=== PATIENT | male | born 1955 | race Caucasian/White ===

== ENCOUNTER → 2023-11-16 10:57 | Outpatient (BNVA) | payer OTHER, SELFPAY | PROVIDERS: PCP Family Medicine; Visit Provider Podiatrist Foot & Ankle Surgery | DX: M79.672 Pain in left foot (principal); R60.9 Edema, unspecified; M72.2 Plantar fascial fibromatosis | CPT/HCPCS: 73630 ==

== ENCOUNTER 2025-11-16 07:14 | Emergency (ER) | payer MEDICARE, SELFPAY ==
[2025-11-16 07:19] VITALS: BP 174/71; PULSE 68; RESP 16; TEMP 36.9; O2SAT 93; BMI 34.2
--- NOTE | 2025-11-16 07:22 | XR_ITS ---
WS: [id number] Acute abdomen series, 11/16/2025 Clinical Data: constipation Comparison: None. Findings: In the chest there are no nodules, masses or effusions. The heart is normal. The pulmonary vascularity is not increased. The aortic arch shows mild tortuosity. No free air is seen beneath the diaphragms. No abnormal intra-abdominal masses or calcifications are seen. There are scattered air-fluid levels throughout the abdomen. There is minimal fecal material in the colon but there is a fecal impaction. There are right upper quadrant cholecystectomy clips. XR/XR acute abdomen series 75999 Impression: 1. Atherosclerosis. 2. Fecal impaction.
--- OUTSIDE RECORDS SUMMARY | 2025-11-16 07:23 | XMS_ITS | Patient Health Record ---
Author Organization [facility] Address [address] [facility] [address] [place] [address] Support Name Relationship Address Phone Unavailable Emergency Contact [address] [place] [id number] JAELYN TIRADO Guarantor Unknown [phone] Reason For Referral No Information Plan Of Treatment No Information
--- OUTSIDE RECORDS SUMMARY | 2025-11-16 07:23 | XMS_ITS | Data Portability ---
Author Organization [facility]EN [facility] Alyssia Waldron, [facility] Address [address] [facility] [address] [place] [address] Care Team Providers Care Appellate Law Clerk Name Role Phone ELENITA GUPTA Primary Care Provider Assessment No assessment recorded. Plan of Treatment Reminders Order Date Submit Date Provider Last Modified By Organization Details Last Modified Time Details Appointments None recorded. Lab hemoglobi n A1C/hemog lobin total, QN, blood 2024 025 PHILOMENA [facility], [address], [place], [address], 5 09:35:17 PSA, serum or plasma 2024 025 [facility], [address] [place], [address], 5 05:10:26 CMP, serum or plasma 2024 025 [facility], [address], [address], [place], [address], 5 09:50:41 lipid panel, blood 2024 025 [facility], [address], [address], [place], [address], 5 09:50:44 CBC 2024 025 [facility], [address], [address], [place], [address], 5 09:51:53 SARS CoV 2 RNA, QL, nasophary nx 2023 dcrase [facility] [address] [facility], [place], [address], 4 18:49:44 PSA, serum or plasma 2023 024 [facility], [address] [place] [address], [address] [place], [address], 07:00:22 CMP, serum or plasma 2023 024 [facility], [address], [place], [address], 4 11:12:31 lipid panel, blood 2023 024 Replaced by [facility], [address], [address], [place], [address], 4 11:13:46 CBC 2023 024 Replaced by [facility], [address], [address], [place], [address], 4 11:49:41 Referral None recorded. Procedures None recorded. Surgeries None recorded. Imaging None recorded. Medication Orders Paxlovid 300 mg (150 mg x 2)-100 mg tablets in a dose pack 2023 024 [facility], [address], [place], [address], 4 13:22:23 sildenafi l 100 mg tablet 2023 024 [facility], [address], [place], [address], 4 16:12:46 rosuvasta tin 10 mg tablet 2023 024 [email or web address] [facility], [address], [place], [address], 4 15:56:29 fluticaso ne propionat e 50 mcg/actua tion nasal spray,veronica pension 2023 024 [facility], [address], [place], [address], 5 10:29:00 Patient TargetsNo targets recorded. Patient InstructionsNo instructions recorded. Reason for Referral None Reported. Results Created Date Observation Date Name Description Value Unit Range Abnormal Flag Note LastModifiedBy Organization Detail LastModifiedTime 05/08/2005/08/2024 CMP (MALE ) glucose 104.0 mg/dL 60.0-9 9.0 high Not Available [facility] [address] [facility] [address], [place], [address], 05/08/2024 11:12:30 05/08/20 24 05/08/2024 CMP (MALE ) BUN (blood urea nitrogen) 11.0 mg/dL 10.0-2 6.0 Not Available [facility] [address] [facility] [address], [place], [address], 05/08/2024 11:12:30 05/08/20 24 05/08/2024 CMP (MALE ) creatinine (serum) 0.8 mg/dL 0.4-1. 5 Not Available [facility] [address] [facility] [address], [place], [address], 05/08/2024 11:12:30 05/08/20 24 05/08/2024 CMP (MALE ) BUN/creatini ne ratio 14.10 ratio Not Available [facility] [address] [facility], [place], [address], 05/08/2024 11:12:30 05/08/20 24 05/08/2024 CMP (MALE ) eGFR calculated 105.8 Not Available [facility] [address] [facility], [place], [address], 05/08/2024 11:12:30 05/08/20 24 05/08/2024 CMP (MALE ) total protein 6.5 g/dL 6.0-8. 5 Not Available [facility] [address] [facility] [address], [place], [address], 05/08/2024 11:12:30 05/08/20 24 05/08/2024 CMP (MALE ) total bilirubin 0.7 mg/dL 0.2-1. 3 Not Available [facility] [address] [facility] [address], [place], [address], 05/08/2024 11:12:30 05/08/20 24 05/08/2024 CMP (MALE ) albumin 4.0 g/dL 3.5-5. 5 Not Available [facility] [address] [facility] [address], [place], [address], 05/08/2024 11:12:30 05/08/20 24 05/08/2024 CMP (MALE ) globulin 2.5 calc Not Available [facility] [address] [facility] [address], [place], [address], 05/08/2024 11:12:30 05/08/20 24 05/08/2024 CMP (MALE ) AST (SGOT) 27.0 U/L 0.0-46 .0 Not Available [facility] [address] [facility], [place], [address], 05/08/2024 11:12:30 05/08/20 24 05/08/2024 CMP (MALE ) altv (SGPT) 26.0 U/L 13.0-6 9.0 normal Not Available [facility] [address] [facility], [place], [address], 05/08/2024 11:12:30 05/08/20 24 05/08/2024 CMP (MALE ) A/G ratio 1.6 ratio Not Available [facility] [address] [facility] [address], [place], [address], 05/08/2024 11:12:30 05/08/20 24 05/08/2024 CMP (MALE ) ALP phos 70.0 U/L 30.0-1 40.0 normal Not Available [facility] [address] [facility] [address], [place], [address], 05/08/2024 11:12:30 05/08/20 24 05/08/2024 CMP (MALE ) calcium 8.9 mg/dL 8.4-10 .5 Not Available [facility] [address] [facility] [address], [place], [address], 05/08/2024 11:12:30 05/08/20 24 05/08/2024 CMP (MALE ) sodium 139.0 mmol/ L 136.0- 145.0 Not Available [facility] [address] [facility] [address], [place], [address], 05/08/2024 11:12:30 05/08/20 24 05/08/2024 CMP (MALE ) potassium 4.5 mmol/ L 3.5-5. 1 Not Available [facility] [address] [facility] [address], [place], [address], 05/08/2024 11:12:30 05/08/20 24 05/08/2024 CMP (MALE ) chloride 108.0 mmol/ L 98.0-1 10.0 normal Not Available [facility] [address] [facility] [address] [facility] 1, [place], [address], 05/08/2024 11:12:30 05/08/20 24 05/08/2024 CMP (MALE ) C02 30.0 mmol/ L 22.0-3 1.0 Not Available [facility] [address] [facility] 1, [place], [address], 05/08/2024 11:12:30 05/08/20 24 05/08/2024 CMP (MALE ) anion gap 1.0 calc Not Available [facility] [address] [facility] [address], [place], [address], 05/08/2024 11:12:30 05/08/20 24 05/08/2024 CMP (MALE ) osmolality 286.9 calc Not Available [facility] [address] [facility], [place], [address], 05/08/2024 11:12:30 05/08/20 24 05/08/2024 LIPID PROFI LE (MALE ) cholesterol 139.0 mg/dL 0.0-20 0.0 Not Available [facility] [address] [facility], [place], [address], 05/08/2024 11:13:45 05/08/20 24 05/08/2024 LIPID PROFI LE (MALE ) trig 154.0 mg/dL 0.0-15 0.0 high Not Available [facility] [address] [facility] 1, [place], [address], 05/08/2024 11:13:45 05/08/20 24 05/08/2024 LIPID PROFI LE (MALE ) HDL - direct 35.0 mg/dL >40.0 low Not Available [facility] [address] [facility], [place], [address], 05/08/2024 11:13:45 05/08/20 24 05/08/2024 LIPID PROFI LE (MALE ) VLDL - direct 30.8 mg/dL Not Available [facility] [address] [facility] 1, [place], [address], 05/08/2024 11:13:45 05/08/20 24 05/08/2024 LIPID PROFI LE (MALE ) LDL - direct 73.2 mg/dL 0.0-13 0.0 Not Available [facility] [address] [facility] 1, [place], [address], 05/08/2024 11:13:45 05/08/20 24 05/08/2024 CBC WBC 8.0 x10 4.5-10 .5 Not Available [facility] [address] [facility] [address] [facility] 1, [place], [address], 05/08/2024 11:49:41 05/08/20 24 05/08/2024 CBC RBC 5.08 x10 4.30-5 .90 Not Available [facility] [address] [facility] [address] [facility] 1, [place], [address], 05/08/2024 11:49:41 05/08/20 24 05/08/2024 CBC HGB 13.9 g/dL 13.5-1 8.0 Not Available [facility] [address] [facility] 1, [place], [address], 05/08/2024 11:49:41 05/08/20 24 05/08/2024 CBC HCT 42.8 % 35.0-6 0.0 Not Available [facility] [address] [facility] 1, [place], [address], 05/08/2024 11:49:41 05/08/20 24 05/08/2024 CBC MCV 84.3 fL 80.0-9 9.9 Not Available [facility] [address] [facility] 1, [place], [address], 05/08/2024 11:49:41 05/08/20 24 05/08/2024 CBC MCH 27.3 pg 27.0-3 2.0 Not Available [facility] [address] [facility] 1, [place], [address], 05/08/2024 11:49:41 05/08/20 24 05/08/2024 CBC MCHC 32.4 g/dL 32.0-3 6.0 Not Available [facility] [address] [facility] 1, [place], [address], 05/08/2024 11:49:41 05/08/20 24 05/08/2024 CBC RDW 14.7 % 11.5-1 4.5 high Not Available [facility] [address] [facility], [place], [address], 05/08/2024 11:49:41 05/08/20 24 05/08/2024 CBC plt 257.0 x10 150.0- 451.0 Not Available [facility] [address] [facility] 1, [place], [address], 05/08/2024 11:49:41 05/08/20 24 05/08/2024 CBC lymphocytes % 23.9 % 20.0-5 0.0 Not Available [facility] [address] [facility] 1, [place], [address], 05/08/2024 11:49:41 05/08/20 24 05/08/2024 CBC granulcytes % 67.5 % 30.0-7 0.0 Not Available [facility] [address] [facility] 1, [place], [address], 05/08/2024 11:49:41 05/08/20 24 05/08/2024 CBC monocytes % 6.7 % 2.0-16 .0 Not Available [facility] [address] [facility] [address], [place], [address], 05/08/2024 11:49:41 05/08/20 24 05/08/2024 CBC granulcytes# 5.4 x10 Not Sonia ilable [facility] [address] [facility] [address], [place], [address], 05/08/2024 11:49:41 05/08/20 24 05/08/2024 CBC lymphocytes # 1.9 x10 Not Available [facility] [address] [facility] [address], [place], [address], 05/08/2024 11:49:41 05/08/20 24 05/08/2024 CBC monocytes # 0.5 x10 Not Avai lable [facility] [address] [facility] [address], [place], [address], 05/08/2024 11:49:41 05/08/20 24 05/09/2024 PSA, TOTAL PSA, total 1.00 NG/mL < or = 4.00 normal The total PSA value from this assay syste m is stand ardiz ed again st the WHO stand betsy. The test resul t will be appro ximat domenic 20% lower when skyler red to the equim olar- stand ardiz ed total PSA (Villalobos man Coult er). Skyler rison of seria l PSA resul ts shoul d be inter prete d with this fact in mind. This test was perfo rmed using the CytoLogice ns chemi lumin escen t metho d. Value s obtai archie from diffe rent assay metho ds canno t be used inter hill ealauray . PSA level s, regar dless of value , shoul d not be inter prete d as absol big sandy evide nce of the prese nce or absen ce of disea se. Not Available [facility] [address], [place], [address], 05/09/2024 07:00:22 08/03/20 24 08/03/2024 SARS CoV 2 RNA, QL, nasop haryn x COVID positi ve Not Available [facility] [address] [place], [address], 08/03/2024 16:06:01 05/21/20 25 05/21/2025 HBA1C hemaglobin A1C 5.6 4.2-6. 5 Not Available [address], [place], [address], 05/21/2025 09:35:17 05/21/20 25 05/21/2025 CMP (MALE ) glucose 103.0 mg/dL 60.0-9 9.0 high Not Available [address] [address], [place], [address], 05/21/2025 09:50:41 05/21/20 25 05/21/2025 CMP (MALE ) BUN (blood urea nitrogen) 11.0 mg/dL 10.0-2 6.0 Not Available [address] [address], [place], [address], 05/21/2025 09:50:41 05/21/20 25 05/21/2025 CMP (MALE ) creatinine (serum) 0.8 mg/dL 0.4-1. 5 Not Available [address], [address], 05/21/2025 09:50:41 05/21/20 25 05/21/2025 CMP (MALE ) BUN/creatini ne ratio 13.75 ratio Not Available [address] [address], [place], [address], 05/21/2025 09:50:41 05/21/20 25 05/21/2025 CMP (MALE ) eGFR calculated 102.5 Not Available [address] [place] [facility] 1, [place], [address], 05/21/2025 09:50:41 05/21/20 25 05/21/2025 CMP (MALE ) total protein 6.3 g/dL 6.0-8. 5 Not Available [facility] [address] [facility], [place], [address], 05/21/2025 09:50:41 05/21/20 25 05/21/2025 CMP (MALE ) total bilirubin 0.5 mg/dL 0.2-1. 3 Not Available [facility] [address] [facility], [place], [address], 05/21/2025 09:50:41 05/21/20 25 05/21/2025 CMP (MALE ) albumin 3.9 g/dL 3.5-5. 5 Not Available [facility] [address] [facility], [place], [address], 05/21/2025 09:50:41 05/21/20 25 05/21/2025 CMP (MALE ) globulin 2.4 calc Not Available [facility] [address] [facility] [address], [place], [address], 05/21/2025 09:50:41 05/21/20 25 05/21/2025 CMP (MALE ) AST (SGOT) 20.0 U/L 0.0-46 .0 Not Available [facility] [address] [facility], [place], [address], 05/21/2025 09:50:41 05/21/20 25 05/21/2025 CMP (MALE ) altv (SGPT) 22.0 U/L 13.0-6 9.0 normal Not Available [facility] [address] [facility] 1, [place], [address], 05/21/2025 09:50:41 05/21/20 25 05/21/2025 CMP (MALE ) A/G ratio 1.6 ratio Not Available [facility] [address] [facility] [address], [place], [address], 05/21/2025 09:50:41 05/21/20 25 05/21/2025 CMP (MALE ) ALP phos 62.0 U/L 30.0-1 40.0 normal Not Available [facility] [address] [facility] [address], [place], [address], 05/21/2025 09:50:41 05/21/2005/21/2025 CMP (MALE ) calcium 8.9 mg/dL 8.4-10 .5 Not Available [facility] [address] [facility] [address], [place], [address], 05/21/2025 09:50:41 05/21/20 25 05/21/2025 CMP (MALE ) sodium 138.0 mmol/ L 136.0- 145.0 Not Available [facility] [address] [address], [place], [address], 05/21/2025 09:50:41 05/21/20 25 05/21/2025 CMP (MALE ) potassium 4.2 mmol/ L 3.5-5. 1 Not Available [facility] [address] [facility] [address], [place], [address], 05/21/2025 09:50:41 05/21/20 25 05/21/2025 CMP (MALE ) chloride 106.0 mmol/ L 98.0-1 10.0 normal Not Available [facility] [address] [facility] [address], [place], [address], 05/21/2025 09:50:41 05/21/20 25 05/21/2025 CMP (MALE ) C02 26.0 mmol/ L 22.0-3 1.0 Not Available [facility] [address] [facility] Dur[facility]ne [facility] 1, [place], [address], 05/21/2025 09:50:41 05/21/20 25 05/21/2025 CMP (MALE ) anion gap 6.0 calc Not Available [facility] [address] [facility], [place], [address], 05/21/2025 09:50:41 05/21/20 25 05/21/2025 CMP (MALE ) osmolality 284.8 calc Not Available [facility] [address] [facility], [place], [address], 05/21/2025 09:50:41 05/21/20 25 05/21/2025 LIPID PROFI LE (MALE ) cholesterol 136.0 mg/dL 0.0-20 0.0 Not Available [facility] [address] [facility], [place], [address], 05/21/2025 09:50:44 05/21/20 25 05/21/2025 LIPID PROFI LE (MALE ) trig 122.0 mg/dL 0.0-15 0.0 Not Available [facility] [address] [facility], [place], [address], 05/21/2025 09:50:44 05/21/20 25 05/21/2025 LIPID PROFI LE (MALE ) HDL - direct 33.0 mg/dL >40.0 low Not Available [facility] [address] [facility], [place], [address], 05/21/2025 09:50:44 05/21/20 25 05/21/2025 LIPID PROFI LE (MALE ) VLDL - direct 24.4 mg/dL Not Available [facility] [address] [facility] [address], [place], [address], 05/21/2025 09:50:44 05/21/20 25 05/21/2025 LIPID PROFI SATNI (MALE ) LDL - direct 78.6 mg/dL 0.0-13 0.0 Not Available [facility] [address] [facility] 1, [place], [address], 05/21/2025 09:50:44 05/21/20 25 05/21/2025 CBC WBC 7.1 x10 4.5-10 .5 Not Available [facility] [address], [place], [address], 05/21/2025 09:51:52 05/21/2005/21/2025 CBC RBC 4.96 x10 4.30-5 .90 Not Available [facility] [address] [facility] 1, [place], [address], 05/21/2025 09:51:52 05/21/20 25 05/21/2025 CBC HGB 13.6 g/dL 13.5-1 8.0 Not Available [facility] [address] [facility] 1, [place], [address], 05/21/2025 09:51:52 05/21/2005/21/2025 CBC HCT 43.1 % 35.0-6 0.0 Not Available [facility] [address] [facility] 1, [place], [address], 05/21/2025 09:51:52 05/21/20 25 05/21/2025 CBC MCV 86.8 fL 80.0-9 9.9 Not Available [facility] [address] [facility] 1, [place], [address], 05/21/2025 09:51:52 05/21/20 25 05/21/2025 CBC MCH 27.4 pg 27.0-3 2.0 Not Available [facility] [address] [facility] 1, [place], [address], 05/21/2025 09:51:52 05/21/2005/21/2025 CBC MCHC 31.5 g/dL 32.0-3 6.0 low Not Available [facility] [address] [facility] 1, [place], [address], 05/21/2025 09:51:52 05/21/20 25 05/21/2025 CBC RDW 14.4 % 11.5-1 4.5 Not Available [facility] [address] [facility] 1, [place], [address], 05/21/2025 09:51:52 05/21/2005/21/2025 CBC plt 243.9 x10 150.0- 451.0 Not Available [facility] [address] [facility], [place], [address], 05/21/2025 09:51:52 05/21/20 25 05/21/2025 CBC lymphocytes % 30.9 % 20.0-5 0.0 Not Available [facility] [address] [facility] 1, [place], [address], 05/21/2025 09:51:52 05/21/2005/21/2025 CBC granulcytes % 57.9 % 30.0-7 0.0 Not Available [facility] [address] [facility] 1, [place], [address], 05/21/2025 09:51:52 05/21/2005/21/2025 CBC monocytes % 8.6 % 2.0-16 .0 Not Available [facility] [address] [facility] 1, [place], [address], 05/21/2025 09:51:52 05/21/20 25 05/21/2025 CBC granulcytes# 4.1 x10 Not Sonia ilable [facility] [address], [place], [address], 05/21/2025 09:51:52 05/21/20 25 05/21/2025 CBC lymphocytes # 2.2 x10 Not Available [facility] [address], [place], [address], 05/21/2025 09:51:52 05/21/20 25 05/21/2025 CBC monocytes # 0.6 x10 Not Avai lable [facility] [address], [place], [address], 05/21/2025 09:51:52 05/21/20 25 05/22/2025 PSA, TOTAL PSA, total 1.46 NG/mL < or = 4.00 normal The total PSA value from this assay syste m is stand ardiz ed again st the WHO stand betsy. The test resul t will be appro ximat domenic 20% lower when skyler red to the equim olar- stand ardiz ed total PSA (Villalobos man Coult er). Skyler rison of seria l PSA resul ts shoul d be inter prete d with this fact in mind. This test was perfo rmed using the Sieme ns chemi lumin escen t metho d. Value s obtai archie from diffe rent assay metho ds canno t be used inter hill jose m . PSA level s, regar dless of value , shoul d not be inter prete d as absol big sandy evide nce of the prese nce or absen ce of disea se. Not Available [facility] [id number] , [place], [address], 05/22/2025 05:10:26 Result Notes None recorded. Problems Name Problem SNOMED Code Status Onset Date Resolution Date Notes Provider Name and Address Organization Details Recorded Time Posterior rhinorrhea 71611374 Active 2022 Korey Bowman MD [address] [place], [address], [facility] 3 17:02:28 Lower urinary tract symptoms due to benign prostatic hypertrophy 5744397121121 1 Active 2022 Elenita Gupta MD [address] [place] [address], [phone], [facility] 3 08:46:28 Pain of left heel 7396947701642 109 Active 2022 Elenita Gupta MD [address] [place] [address], [phone], [facility] 3 08:46:33 Morbid obesity 260510709 Active 2023 Palmira shcmidt [facility] 4 15:34:30 Hyperlipide savana 37649422 Active 2023 GLADYS schmidt [facility] 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 5 11:05:14 Problem Notes None recorded. Procedures Surgical History Date Name Laterality Status Provider Name and Address Organization Details Recorded Time 05/08/20 24 Psa screening completed ASPEN SANTILLAN [facility] 10/19/2024 14:53:16 10/28/20 23 Colonoscopy completed GLADYS MCKEON [facility] 11/03/2023 15:40:48 laparoscopic cholecystectomy completed Elenita Gupta MD [address] [place] [address], [phone], [facility] 05/15/2025 11:12:21 Imaging Results None recorded. Procedure Notes None recorded. Medical Equipment None Reported. Allergies No known drug allergies Medications Name Sig Start Date Stop Date Status Note LastModified by Organization Details LastModified Time doxycycline hyclate 100 mg capsule Take 1 capsule twice a day by oral route for 10 days. 10/14 completed Not Available Not Available Not Available prednisone 20 mg tablet TAKE 1 TABLET BY MOUTH ONCE DAILY 03/08 completed Not Available Not Available Not Available sildenafil 100 mg tablet TAKE ONE-HALF TABLET BY MOUTH 30 TO 60 MINUTES PRIOR TO SEXUAL ACTIVITY. MAX 1 TABLET/24 HOURS. active Not Available Not Available No t Available tamsulosin 0.4 mg capsule 02/07 completed Not Available Not Available Not Available benzonatate 100 mg capsule Take 1 capsule 3 times a day by oral route as needed for 10 days. 10/14 completed Not Available Not Available Not Available hydroxyzine HCl 25 mg tablet TAKE 1 TABLET BY MOUTH ONCE DAILY AT BEDTIME NEEDED 03/29 completed Not Available Not Available Not Available mupirocin 2 % topical ointment APPLY TWICE DAILY TO AFFECTED AREA ON BACK UNTIL HEALED 10/14 completed Not Available Not Available Not Available clobetasol 0.05 % topical ointment APPLY OINTMENT TOPICALLY TO AFFECTED AREA TWICE DAILY FOR 2 WEEKS; THEN TAKE A 1 WEEK BREAK; REPEAT NEEDED 03/29 completed Not Available Not Available Not Available fluticasone propionate 50 mcg/actuati on nasal spray,suspe nsion USE 2 SPRAY(S) IN EACH NOSTRIL ONCE DAILY active Not Available Not Available No t Available amoxicillin 875 mg-potassiu m clavulanate 125 mg tablet TAKE 1 TABLET BY MOUTH EVERY 12 HOURS FOR 10 DAYS 04/10 completed Not Available Not Available Not Available dutasteride 0.5 mg capsule 02/07 completed Not Available Not Available Not Available rosuvastati n 10 mg tablet TAKE 1 TABLET BY MOUTH ONCE DAILY AT BEDTIME active Not Available Not Available No t Available melatonin 1 hs active Not Available Not Sonia ilable Not Available Mucinex active Not Available Not Avail able Not Available Paxlovid 300 mg (150 mg x 2)-100 mg tablets in a dose pack TAKE 3 TABLETS TOGETHER (TWO 150 MG NIRMATREL VIR TABLETS AND ONE 100 MG RITONAVIR TABLET) BY MOUTH TWICE DAILY FOR 5 DAYS. 10/23 completed Not Available Not Available Not Available Vitals Date Recorded Body height Body mass index (BMI) Body weight Body temperature Oxygen saturation Heart rate Systolic And Diastolic Provider Name and Address Organization Details Last Updated DateTime 4 182.88 cm 35.9 kg/m2 050204. 98 g 97.4 [degF] 96 % 61 /min 130/70 mm[Hg] [facility] 4 15:32:28 Date Recorded Body height Body mass index (BMI) Body weight Body temperature Heart rate Oxygen saturation Systolic And Diastolic Provider Name and Address Organization Details Last Updated DateTime 5 182.88 cm 35.4 kg/m2 859152. 61 g 97.5 [degF] 53 /min 94 % 138/58 mm[Hg] [facility] 5 10:34:10 Date Recorded Body height Body mass index (BMI) Body weight Oxygen saturation Heart rate Respiratory rate Body temperature Systolic And Diastolic Provider Name and Address Organization Details Last Updated DateTime 4 182.88 cm 35.3 kg/m2 846951. 72 g 97 % 55 /min 20 /min 97.9 [degF] 120/80 mm[Hg] ASPEN SANTILLAN [facility] 4 12:07:58 Social History Question Answer Notes LastModified by [employer] Details LastModified Time Tobacco Smoking Status Never [facility] 08/03[facility]2024 16:09:42 What Was The Date Of Your Most Recent Tobacco Screening? 05/15/2025 Information not available 05/15/2025 Sex: Unknown Functional Status Question Answer Note LastModified by [employer] Details LastModified Time How many times per week do you consume alcohol? 1-2 times per week Information not available 05/15/2025 Do you use any illicit or recreational drugs? No [email or web address] Information not available 08/03/2024 Do you or have you ever used any other forms of tobacco or nicotine? No Information not available 05/15/2025 What is your level of alcohol consumption? Occasional [email or web address] Information not available 08/03/2024 Do you or have you ever used any nicotine-free cigarettes, vape, or chewing tobacco? No Information not available 05/15/2025 Mental Status None recorded. Family History Nothing Reported. Medical History No medical history recorded. Immunizations Vaccine Type Date Status Note Provider Nam e and Address Organization Details Recorded Time zoster recombinant 3 completed Not Available [facility] 07/05/2023 08:15:28 Tdap 3 completed Not Available [facility] 07/05/2023 08:15:28 zoster recombinant 3 completed [facility] 10/14/2023 08:37:20 Influenza, adjuvanted, quadrivalent, PF 3 completed JIGNESH GUPTA PA-C [address] [place] [address], [phone], [facility] 11/04/2023 16:47:13 Pneumococcal conjugate PCV20, polysaccharide [id number] conjugate, adjuvant, PF 3 completed JIGNESH GUPTA PA-C [address] [place], [address], [facility] 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 needs screening skin exam and ongoing anctinic tx Visual disturbance 31534 001 H53.9 he reports spots in his visual garcia. works with high heat and bright light. [id number] Elenita Gupta MD [facility] ([facility]) [address] [place] [phone] 03/29/2023 14:14:06 03/29/2023 19:59:43 Hyperglycemia 82710486 R73.9 Lower urin rick tract symptoms 564868089 R39.9 Hyperlipidemia 18163020 E78.5 [id number] ANTONIA CORREA-Joseph [facility] ([facility]) [address] [place] [id number] 06/30/2023 09:24:08 06/30/2023 11:03:46 Acute upper respiratory infection 66175365 J06.9 Start doxycyclin e BID today. Can take benzonatat e PRN for cough. Encouraged patient to push fluids and use cool mist humidifier at night. Can take tylenol/ib uprofen as needed for pain and fever. Encouraged patient to return for further evaluation if no improvemen t in 3-5 days. If severe SOB or chest pain occurs, go to ED. Patient verbalized understand ing. [id number] Korey Bowman MD [facility] ([facility]) [address] [place] [phone] 09/02/2023 16:36:34 09/12/2023 17:26:09 Posterior rhinorrhea 30560938 R09.82 Patient has signs and symptoms suggestive of allergic rhinitis and posterior nasal drip. Commend starting Flonase and second-gen eration antihistam ine. [id number] Elenita Gupta MD [facility] ([facility]) [address] [place] [id number] 10/14/2023 08:16:48 10/14/2023 11:41:37 Pain of left heel 1717268076 960806 M79.672 he requests and is ready for podiatry referral for further treatment. Edema of l ower extremity 634654305 R60.0 we discussed this likely really contribute s to his nocturia. recommende d low sodium diet and evening fluid restrictio n. Lower urin rick tract symptoms due to benign prostatic hypertrophy 8778983370 9101 N40.1 [id number] JIGNESH GUPTA PA-C [facility] ([facility]) [address] [place] [id number] 11/04/2023 09:15:36 11/04/2023 16:52:31 Adult health examination 121408275 Z00.00 Benign pro static hyperplasia 760889567 N40.0 Hyperlipidemia 61016713 E78.5 Administra tion of pneumococcal vaccine 82834134 Z23 Administra tion of influenza vaccine 70940716 Z23 [id number] BATOOL CORREA [facility] ([facility]) [address] [place] [id number] 02/08/2024 12:04:52 02/08/2024 13:57:36 Acute sinusitis 60763939 J01.90 Start Augmentin BID today. Encouraged to continue tylenol/ib uprofen as needed for pain and fevers. Continue daily allergy medication s. Recommend pushing fluids and using cool mist humidifier at night. If worsening condition or no improvemen t in 7-10 days, return for further evaluation . If severe SOB or chest pain occurs, go to ED. Patient verbalizes understand ing. [id number] Elenita Gupta MD [facility] ([facility]) [address] [place] [id number] 04/10/2024 14:41:41 04/10/2024 17:39:46 Hyperlipidemia 93480973 E78.5 Posterior rhinorrhea 758 51119 R09.82 Morbid obesity 206495316 E66.01 Erectile dysfunction 860 355938 F52.21 Fatigue 80120671 R53.83 [id number] Elenita Gupta MD [facility] ([facility]) [address] [place] [address] 05/08/2024 09:14:24 05/09/2024 09:34:39 Nocturia 196914101 R35.1 Adult [facility] examination 778588016 Z00.00 [id number] Korey Bowman MD [facility] ([facility]) [address] [place] [phone] 08/03/2024 15:54:02 08/03/2024 16:46:56 Cough 12108108 R05.9 COVID test was positive COVID-19 041539191 U07.1 Patient is positive for COVID. Patient does have risk factors that puts the patient at high risk for developing severe disease. Discussed Paxlovid and the patient would like to proceed. Discussed symptomati c treatment and plenty of fluids. Discussed recommende d quarantine guidelines set by the CDC. Follow-up if significan t shortness of breath or worsening symptoms does develop. 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 G43.109 [id number] Nocturia 543201426 R35.1 [id number] Hyperglycemia 64649917 R 73.9 31647 Health Concerns Section Related Observation LastModified by Organization Detai ls LastModified Time None Recorded Concern Status LastModified by Organization Details LastModified Time None Recorded Advance Directives Directive None Recorded Payers Insurance Date Sequence Insurance Name Policy Number Policy Klesey Covered Member ID Kelsey Member ID Guarantor Name 08/06/2024 1 [place] [id number] Brijesh Clayton [id number] Brijesh Clayton 11/06/2024 2 [place] Brijesh Clayton [id number] Brijesh Clayton 11/06/2024 1 [place] - [place] [id number] Brijesh Clayton [id number] Brijesh Clayton 05/15/2025 [place] - [facility] (MEDICARE) Brijesh Clayton [id number] Brijesh Clayton 05/15/2025 1 [place] Brijesh Clayton [id number] Brijesh Clayton 05/15/2025 1 [place] [id number] Brijesh Clayton [id number] Brijesh Clayton 05/21/2025 1 [employer] (MEDICARE REPLACEMENT/ ADVANTAGE - PPO) Brijesh Clayton [id number] Brijesh Clayton 08/03/2024 1 [employer] (MEDICARE REPLACEMENT/ ADVANTAGE - HMO) Brijesh Clayton [id number] Brijesh Clayton 09/14/2024 [place] [facility] (INSTITUTION [facility]) Brijesh Clayton [id number] Brijesh Clayton Notes Date Note Type Note Provider Name and Address Organization Details Recorded Time 04/10/2024 text/html Annual WellnessReported by PatientSocial/Behavior al HistoryFor diet and nutrition, patient reportshealthy diet. For physical activity, patient reportsexercises on a regular basis (walks 1 mile 2-3 days per week). For additional lifestyle factors, patient reportsno tobacco useanddrinks alcohol (mild-moderate).Mental Status:For depression risk, patient reportsno history of depression.Functional AbilityFor vision, patient reportsworse near (glasses). For hearing, patient reportsno loss of hearing.ROS as noted in the HPI Elenita Gupta MD [address] [place] [address], [phone], [facility] 04/10/2024 16:23:57 08/03/2024 text/html CoughReported by PatientHPIFor severity, patient reportsworsening. For associated symptoms, patient reportschills. For quality, patient reportsharsh. For context, patient reportsworse at night. For modifying factors, patient reportsotc medication.ROS as noted in the HPI walk in patientPatient reports 2 days ago. he has sneezing , head congestion, coughing, runny nose. Korey Bowman MD [address] [place] [address], [phone], [facility] 08/03/2024 16:44:15 11/07/2024 text/html Medicare Annual Wellness VisitReported by PatientSocial/Behavior al HistoryFor diet and nutrition, patient reportshealthy diet,discussed vitamin and supplement use,discussed portion control,discussed maintaining calcium balance, anddiscussed diet improvement. For fracture risk, patient reportsno history of fractures,no recent explained fracture,no sudden unexplained fractures, andno previous musculoskeletal injuries. For physical activity, patient reportsexercises on a regular basis,discussed weightbearing activities, anddiscussed exercise habits.Mental Status:For depression risk, patient reportsnever feels sad, empty, or tearful,no loss of interest in activities,no significant changes in weight,no sleep disturbances or insomnia,no agitation,no loss of energy,no feelings of worthlessness or guilt,no thoughts of suicide,no history of depression, andno history of mood disorders. For orientation, patient reportsno disorientation to dateandno disorientation to place. For concentration and memory, patient reportsno decreased concentrating ability,no memory lapses or loss, anddoes not forget words. For speech/motor difficulties, patient reportsno speech difficulties,no difficulty expressing formulated concepts,no difficulty with fine manipulative tasks,no difficulty writing/copying,no slowed reaction time, anddoes not knock things over when trying to pick them up.Functional AbilityFor hearing, patient reportsno loss of hearing. For activities of daily living, patient reportsable to bathe with limited or no assistance,able to contol urination and bowels,able to dress with limited or no assistance,able to feed self with limited or no assistance,able to get out of chair or bed with limited or no assistance,able to groom with limited or no assistance, andable to toilet with limited or no assistance. For instrumental activities of daily living, patient reportsable to do house work with limited or no assistance,able to grocery shop with limited or no assistance,able to manage medications with limited or no assistance,able to manage money with limited or no assistance,able to prepare meals with limited or no assistance, andable to use the phone with limited or no assistance. For falls risk assessment, patient reportsno frequent falls while walking,no dizziness/vertigo,fall (s) in the past year 0, andfall(s) since last visit0. For home safety, patient reportsno unsafe mirella hazzards,no unsafe stairs,working smoke/co detectors,use of seatbelts,has hand bars in the bathroom/shower,good lighting in the home,reviewed sun protection, andnumber of motor vehicle accidents 0. For vision, (wears readers). I need labs done for cholesterol and I am fasting JIGNESH GUPTA PA-C [address] [place], [address], [facility] LD[facility]. 11/07/2024 12:41:20 05/15/2025 text/html Annual WellnessReported by PatientSocial/Behavior al HistoryFor diet and nutrition, patient reportsdiscussed diet improvement. For physical activity, patient reportsexercises on a regular basis (walking a lot with his job). For additional lifestyle factors, patient reportsno tobacco useanddrinks alcohol (mild-moderate).Mental Status:For depression risk, patient reportsno history of depression.Functional AbilityFor vision, patient reportsworse near (glasses). For hearing, patient reportsno loss of hearing.ROS as noted in the HPI everything is the same no new problems. has occular migraines for decades. has them controlled now with fish oil. he has not had one since starting the fish oil. Elenita Gupta MD [address] [place], [address], [facility], LJuan RLJuan RC. 05/15/2025 11:15:31
--- NOTE | 2025-11-16 07:34 | W.ED.GENADLT ---
HPI - General Adult General: Chief complaint: General Medical Stated complaint: Hasn't been able to have a BM X4 Time Seen by Provider: 11/16/25 07:22 History of Present Illness: 70-year-old male presents emergency room complaining of rectal pain due to hemorrhoids as well as constipation. He does not know what abdominal for last 4 days. He is streaking blood with bowel movements that she relates to his hemorrhoids. He has also had some ankle paresis with liquid stool leaking from the rectum. He has had colonoscopies in the past. Pain is very positional specifically when he is supine or sitting causes severe rectal pain. He does not have any bleeding between bowel movements. He reports previously having had colonoscopies which were unremarkable. Sitting with his weight shifted to 1 side to prevent discomfort. He is not on any anticoagulants. Associated symptoms: Deny chest pain, dyspnea or rash Related Data Home Medications ?Medication ?Instructions ?Recorded ?Confirmed chlorhexidine gluconate 0.12 % See Rx Instructions .Route .COMPLEX 11/16/25 11/16/25 mouthwash fluticasone propionate 50 2 spray intranasal DAILY PRN 11/16/25 11/16/25 mcg/actuation nasal allergies spray,suspension hydrocodone 5 mg-acetaminophen 325 1 tab PO .Q4-6H PRN Pain 11/16/25 11/16/25 mg tablet rosuvastatin 10 mg tablet 10 mg PO QPM 11/16/25 11/16/25 Previous Rx's ?Medication ?Instructions ?Recorded Compression stockings #1 ea 11/16/23 polyethylene glycol 3350 17 8.5 g PO BID #850 grams 11/16/25 gram/dose oral powder (GentleLax) Allergies Allergy/AdvReac Type Severity Reaction Status Date / Time No Known Allergies Allergy Verified 11/16/25 07:20 Review of Systems Const: Denies: fever(s) or chills Card: Denies: chest pain Resp: Denies: dyspnea GI: Reports: constipation, bloating, GI cramping, pain on defecation, rectal pain and hematochezia (Streaking blood with bowel movements); Denies: abdominal pain : Denies: dysuria, urinary frequency or urinary urgency Musc: Denies: neck pain or back pain Skin/Breast: Denies: rash Physical Exam Const: COMMON NORMALS: no acute distress GENERAL APPEARANCE: cooperative and comfortable ORIENTATION/CONSCIOUSNESS: Yes awake, Yes oriented to person, Yes oriented to place and Yes oriented to time HENMT: COMMON NORMALS: normocephalic, atraumatic and hearing grossly normal bilaterally HEAD & SCALP: normocephalic and atraumatic Resp: COMMON NORMALS: normal respiratory effort, No retractions, No use of accessory muscles and clear to auscultation bilaterally AUSCULTATION: clear to auscultation bilaterally Cardio: COMMON NORMALS: regular rate, regular rhythm and No murmurs present (Cardio) RATE: regular rate RHYTHM: regular rhythm GI: COMMON NORMALS: Soft to palpation and No hepatosplenomegaly present AUSCULTATION: Yes normoactive bowel sounds PALPATION: Yes Soft to palpation, No Tenderness to palpation present (GI), No Guarding due to palpation present (GI) and Yes No hepatosplenomegaly present OTHER: Rectal exam inflamed hemorrhoids no thrombosis no active bleeding. Extremity: COMMON NORMALS: normal to inspection, capillary refill normal, no clubbing, cyanosis or edema, no calf tenderness and no pedal edema Neuro: SENSORIUM/ORIENTATION: Yes oriented to person, Yes oriented to place and Yes oriented to time Skin: COMMON NORMALS: no rashes or lesions noted GENERAL SKIN EXAM: no rashes or lesions noted Course Vital Signs: Vital signs: Vital Signs Temperature 98.5 F 11/16/25 07:19 Pulse Rate 58 L 11/16/25 11:38 Respiratory Rate 18 11/16/25 10:31 Blood Pressure 166/78 11/16/25 11:38 Pulse Oximetry 95 11/16/25 11:38 Oxygen Delivery Me thod Room Air 11/16/25 07:19 MDM - General Adult Medical Decision Making Medical decision making Social determinants: None I reviewed the patient's medical record. I reviewed the patient's current home meds. Alternate historians: None Differential diagnosis: Hemorrhoids, constipation, encopresis Lab Review: None Imaging: Flat and upright films of the abdomen show fecal impaction no sign of bowel obstruction no free air under the diaphragm Assessment of risk Level of risk: Low Hospitalization considerations: No indication for hospitalization at this time Reexamination: Improved after relief of fecal impaction by enema Assessment and plan: Patient had a large bowel movement after enema. Pain is much improved. Vital signs have been stable and he is mildly hypertensive and bradycardic. No significant bleeding in the emergency room even with enema. Will discharge him home recommend starting on MiraLAX half capful twice a day. He still she is [id number] hemorrhoid creams 3-4 times a day. Will refer him to general surgery. He may need repeat endoscopy and will likely need intervention for his hemorrhoids. Return if he has worsening problems. Lab Data Radiology Impressions Chest/Abdomen X-ray 11/16/25 07:22 Impression: 1. Atherosclerosis. 2. Fecal impaction. All radiology interpretation(s) finalized by discharge Discharge Plan Discharge Patient Disposition: Home Clinical Impression: Constipation, Hemorrhoids Condition: Stable Prescriptions: New polyethylene glycol 3350 [GentleLax] 17 gram/dose powder 8.5 g PO BID Qty: 850 0RF No Action (DME) Compression stockings See Rx Instructions .Route .MEDSUPPLY Qty: 1 0RF Rx Instructions: As directed hydrocodone-acetaminophen 5-325 mg tablet 1 tab PO .Q4-6H PRN (Reason: Pain) fluticasone propionate 50 mcg/actuation spray,suspension 2 spray INTRANASAL DAILY PRN (Reason: allergies) rosuvastatin 10 mg tablet 10 mg PO QPM chlorhexidine gluconate 0.12 % mouthwash See Rx Instructions .ROUTE .COMPLEX Rx Instructions: FILL CAP TO FILL LINE AND SWISH FOR 30 SECONDS THEN SPIT, USE 2 TIMES DAILY. Discharge Orders: Discharge ED (Routine); Ordered 11/16/25 Ordered By: Richard Thompson Referrals: Donis Gupta MD [Primary Care Provider, Family Practice] Discharge Diet: Usual diet Discharge Activity: Increase activity as tolerated Patient Instructions: Opioid Safety, Pain Management, Patient Portal & Rupa Instructions Activity Restrictions/Additional Instructions: Thank you for choosing [facility] for your healthcare needs today. It is very important that you follow up as instructed or that you return to the Emergency Department should you have concerns or if your condition changes or worsens in any way. Emergency department visits are focused on emergent conditions, in some cases you may require further evaluation on an outpatient basis. You were seen in the emergency room with complaints of constipation and hemorrhoid and formation. Relieve the constipation with enema. Recommend to start on MiraLAX 8.5 mg (half a capful) twice a day. Additionally we will make a referral to you to the general surgery clinic for in regards to your hemorrhoids. Use [id number] topical hemorrhoid Cream for immediate treatment (Please note that included in your discharge packet is information concerning opioid safety and pain management. This information is given to all patients were discharged from the ER regardless of their discharge diagnosis or the medicines they usually take or are prescribed.) Print Language: Swedish Coding Level of Care Code ED Machine Stapler for Kale Harris
--- NOTE | 2025-11-16 08:20 | PC.NURSE ---
80mL on bladder scan post void, pt changed into gown per verbal order of Dr. Thompson
[2025-11-16] MEDS: ondansetron 2 mg/ML SDV 2 mL 4 MG IVP (10:28)
[2025-11-16 10:31] VITALS: RESP 18; O2SAT 98
[2025-11-16] MEDS: morphine 4 mg/mL SDV 1 mL IVP (10:31)
[2025-11-16 10:32] VITALS: BP 166/81; PULSE 57; O2SAT 98
--- NOTE | 2025-11-16 11:26 | PC.NURSE ---
pt reports was able to have successful BM, denies fullness feeling as described before
[2025-11-16 11:38] VITALS: BP 166/78; PULSE 58; O2SAT 95
== END 2025-11-16 11:59 | disposition home or self-care (01) ==
PROVIDERS: Emergency Provider Family Medicine; PCP Family Medicine
DX: K59.00 Constipation, unspecified (principal); K64.9 Unspecified hemorrhoids
CPT/HCPCS: 51798; 74022; 96374; 96375; 99284; J1885; J2270; J2405